=== PATIENT | male | born 1950 | race Two or more races ===

== ENCOUNTER 2018-12-17 07:16 | Outpatient (CLI) | payer OTHER ==
[2018-12-19] MEDS ORDERED: LIPITOR40 MG PO (12:46)
[2018-12-19] MEDS ORDERED: SYNTHROID100 MCG PO (12:47)
[2018-12-19] MEDS ORDERED: DIOVAN160 M1 PO (12:47)
[2018-12-19] MEDS ORDERED: AMIODARONE HCL400 MG PO (12:47)
== END 2018-12-17 07:25 | disposition home or self-care (01) ==
LOC: TOM 07:16
DX: J15.0 Pneumonia due to Klebsiella pneumoniae (principal); D02.20 Carcinoma in situ of unspecified bronchus and lung; C34.92 Malignant neoplasm of unspecified part of left bronchus or lung; C78.00 Secondary malignant neoplasm of unspecified lung
CPT/HCPCS: 71270; Q9965

== ENCOUNTER 2018-12-23 14:20 | Inpatient (IN) | payer OTHER ==
[~2018-12-23] VITALS: Ht 172.7 cm; Wt 86.2 kg
[~2018-12-23 14:20] MED LIST: AMIODARONE HCL400 MG PO; DIOVAN160 M1 PO; LIPITOR40 MG PO; SYNTHROID100 MCG PO
== END 2018-12-30 16:19 | disposition home or self-care (01) | DRG 657 ==
LOC: SURG 12-25 05:30 → O/R 12-25 05:30 → SURH 12-25 07:00 → SURG 12-25 13:15
PROVIDERS: ADMIT Urology
PROC: 0TB00ZZ Excision of Right Kidney, Open Approach (ICD-10-PCS; principal; 2018-12-25 07:00)
PROC: 4A12X4Z Monitoring of Cardiac Electrical Activity, External Approach (ICD-10-PCS; 2018-12-26)
PROC: 3E0F7GC Introduction of Other Therapeutic Substance into Respiratory Tract, Via Natural or Artificial Opening (ICD-10-PCS; 2018-12-26)
DX: C64.1 Malignant neoplasm of right kidney, except renal pelvis (principal); C78.02 Secondary malignant neoplasm of left lung; D62 Acute posthemorrhagic anemia; J95.89 Other postprocedural complications and disorders of respiratory system, not elsewhere classified; J98.11 Atelectasis; J44.1 Chronic obstructive pulmonary disease with (acute) exacerbation; E11.9 Type 2 diabetes mellitus without complications; I12.9 Hypertensive chronic kidney disease with stage 1 through stage 4 chronic kidney disease, or unspecified chronic kidney disease; N18.3 Chronic kidney disease, stage 3 (moderate); D69.49 Other primary thrombocytopenia; E78.00 Pure hypercholesterolemia, unspecified; N40.0 Benign prostatic hyperplasia without lower urinary tract symptoms; I48.0 Paroxysmal atrial fibrillation; Z72.0 Tobacco use; Z92.21 Personal history of antineoplastic chemotherapy